=== PATIENT | male | born 1970 | race Caucasian/White ===

== ENCOUNTER 2022-10-14 09:37 | Emergency (ER) | payer BC ==
[~2022-10-14] VITALS: Ht 182.9 cm; Wt 78.0 kg
[2022-10-14] MEDS ORDERED: LISINOPRIL20 MG PO (09:46)
[2022-10-14] MEDS ORDERED: LIPITOR10 MG PO (09:47)
[2022-10-14] MEDS ORDERED: ACYCLOVIR800 MG PO (09:48)
[2022-10-14] MEDS ORDERED: NAPROXEN SODIU220 MG PO (09:48)
[2022-10-14] MEDS ORDERED: TRAMADOL HCL50 MG PO (09:49)
[2022-10-14] MEDS ORDERED: BACLOFEN10 MG PO (09:49)
[2022-10-14] MEDS ORDERED: IBU600 MG PO (09:50)
--- OUTSIDE RECORDS SUMMARY | 2022-10-14 10:52 | XMS ---
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 Lena has no Care Guidelines for this patient. EAgustin VISIT COUNT (12 MO.) 1 [facility] 1 [facility] [place]. TOTAL 2 NOTE: Visits indicate total known visits. ED/UCC VISIT TRACKING (12 MO.) [facility] COMPLAINT: - N/V, ABD PAIN 10/12/2022 21:20 [facility] [place] TYPE: Emergency DIAGNOSES: - Other intervertebral disc displacement, lumbar region - BACK PAIN - Lumbago with sciatica, left side INPATIENT VISIT TRACKING (12 MO.) No inpatient visits to display in this time frame [email or web address]
[2022-10-14] MEDS ORDERED: ONDANSETRON ODT8 MG PO (12:05)
== END 2022-10-14 12:33 | disposition home or self-care (01) ==
LOC: ED 09:37
DX: K29.00 Acute gastritis without bleeding (principal); Z88.1 Allergy status to other antibiotic agents; Z79.899 Other long term (current) drug therapy
CPT/HCPCS: 36415; 80053; 81003; 83690; 85025; 99284; J7030